=== PATIENT | female | born 1945 | race Caucasian/White ===

== ENCOUNTER 2018-01-03 15:43 | Emergency (ER) | payer OTHER, MEDICARE ==
[~2018-01-03] VITALS: Ht 167.6 cm; Wt 78.6 kg
[~2018-01-03 15:43] MED LIST: BENA25TA8 PO; CALC-137 PO; CLAR10CA3 PO; COLE625 PO; EPIP0.3I IM; FISH1000 PO; GLUC500C3 PO; METH5TAB4 PO; METO50TA PO; PRED20 PO; PRIL20TA2 PO; RANI150 PO; TAB-TAB PO
[2018-01-03 15:55] VITALS: BP 167/107; PULSE 63; RESP 18; TEMP 98.7; O2SAT 100
[2018-01-03 16:05] VITALS: BP 162/107; PULSE 62; RESP 18; TEMP 98.7; O2SAT 98
[2018-01-03] MEDS ORDERED: CETI10CA3 PO (16:11)
[2018-01-03] MEDS ORDERED: ATOR10TA15 PO (16:11)
[2018-01-03] MEDS ORDERED: MULTTAB67 PO (16:11)
[2018-01-03] MEDS ORDERED: OMEP20TA93 PO (16:11)
[2018-01-03] MEDS ORDERED: FISHCAP4 PO (16:11)
[2018-01-03] MEDS ORDERED: GLUC500T4 PO (16:11)
[2018-01-03] MEDS ORDERED: SODIUM CHLORIDE 0.9% FLUSH 10 ML FLUSH IVF PRN (16:15)
[2018-01-03 16:33] LABS: AUTOMATED NEUTROPHIL # 2.9 TH/MM3 (1.8-7.7); BASOPHIL % 0.5 % (0.0-2.0); EOSINOPHIL # 0.1 TH/MM3 (0-0.4); HEMATOCRIT 40.3 % (35.0-46.0); HEMOGLOBIN 13.8 GM/DL (11.6-15.3); LYMPH % 47.6 % (9.0-44.0); LYMPHOCYTE # 3.2 TH/MM3 (1.0-4.8); MEAN CELL VOLUME 90.9 FL (80.0-100.0); MEAN CORPUSCULAR HEMOGLOBIN 31.2 PG (27.0-34.0); MEAN CORPUSCULAR HGB CONC 34.3 % (32.0-36.0); MEAN PLATELET VOLUME 8.7 FL (7.0-11.0); MONO % 7.2 % (0.0-8.0); MONOCYTE # 0.5 TH/MM3 (0-0.9); NEUT % 43.7 % (16.0-70.0); PLATELET COUNT 286 TH/MM3 (150-450); RED BLOOD COUNT 4.44 MIL/MM3 (4.00-5.30); RED CELL DISTRIBUTION WIDTH 13.7 % (11.6-17.2); WHITE BLOOD COUNT 6.7 TH/MM3 (4.0-11.0)
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
[2018-01-03 16:44] LABS: PROTHROMBIN TIME - PATIENT 10.6 SEC (9.8-11.6)
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
[2018-01-03 17:00] VITALS: BP 175/73; PULSE 72; RESP 18; O2SAT 98
[2018-01-03 17:06] VITALS: PULSE 76; RESP 18; O2SAT 98
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
[2018-01-03 19:06] VITALS: BP 188/77; PULSE 65; RESP 18; O2SAT 98
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
[2018-01-03] MEDS ORDERED: AZIT250T3 PO (21:25)
== END 2018-01-03 21:44 | disposition home or self-care (01) ==
LOC: NEPE 15:43
DX: S30.1XXA Contusion of abdominal wall, initial encounter (principal); E78.00 Pure hypercholesterolemia, unspecified; K21.9 Gastro-esophageal reflux disease without esophagitis; V43.52XA Car driver injured in collision with other type car in traffic accident, initial encounter; Y92.410 Unspecified street and highway as the place of occurrence of the external cause; Z79.899 Other long term (current) drug therapy
CPT/HCPCS: 71045; 71250; 72125; 72170; 74176; 80048; 85025; 85610; 85730; 99285